=== PATIENT | female | born 1985 ===

== ENCOUNTER → 2018-08-20 | Outpatient (CLI) | payer OTHER ==
[2014-03-05 16:50] VITALS: BMI 33.2
[~2018-08-20] MED LIST: ACE3 PO; ACET-1718 PO; IBUP800T37 PO; LOR5/325 PO; NORE0.3536 PO; PREN-127 PO; SCOT TD
[2018-08-20 09:57] LABS: PLATELET COUNT, AUTOMATED 200 K/uL (150-450)
== END ==
LOC: LAB 08:53
PROVIDERS: ATTEND Obstetrics & Gynecology
DX: Z34.91 Encounter for supervision of normal pregnancy, unspecified, first trimester (principal); R68.89 Other general symptoms and signs
CPT/HCPCS: 36415; 81001; 84443; 85025; 86592; 86762; 86850; 86900; 86901; 87088; 87340